=== PATIENT | male | born 1965 | race Caucasian/White ===

== ENCOUNTER 2016-12-12 14:10 | Emergency (ER) | payer MEDICAID ==
--- NOTE | 2016-12-12 14:46 | Emergency Department Record ---
History of Present Illness - General Chief Complaint: Back Pain/Injury Stated Complaint: LOWER BACK PAIN Time Seen by Provider: 12/12/16 14:35 Source: Patient Mode of Arrival: Ambulatory Limitations: No limitations - History of Present Illness Initial Comments: 51 yo male presents with left lower back pain for one week. No specific injury. No trauma. 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 He has had similar pain in the past. The pain is more on the left and radiates to the left buttocks. No weakness, no numbness, no changes in bowel or bladder function. No numbness with wiping. MD Complaint: Back pain -: Week(s) (1) Place: Work Radiation: Left leg (left buttocks) Severity: Moderate Quality: Aching, Sharp, Stabbing Consistency: Constant Improves With: Immobilization Worsens With: Movement, Walking Context: Bending Associated Symptoms: Denies other symptoms - Related Data Previous Rx's Medication Instructions Recorded Cyclobenzaprine HCl [Flexeril] 10 mg PO TID #20 tablet 12/12/16 Hydrocodone/Acetaminophen [[place] 1 each PO Q8H #10 tablet 12/12/16 5-325 Tablet] Methylprednisolone [Medrol Dose 0 mg PO UD #1 tab.ds.pk 12/12/16 Pack] Naproxen [Naprosyn] 500 mg PO BID #30 tablet 12/12/16 Allergies Allergy/AdvReac Type Severity Reaction Status Date / Time Penicillins Allergy Severe HIVES Verified 12/12/16 14:49 sulfamethoxazole Allergy Severe HIVES Verified 12/12/16 14:49 [From Bactrim] trimethoprim [From Bactrim] Allergy Severe HIVES Verified 12/12/16 14:49 Review of Systems Constitutional: Denies: Chills, Fever, Malaise, Weakness Eyes: Denies: Eye discharge, Eye pain, Photophobia, Vision change ENT: Denies: Congestion, Throat pain Respiratory: Denies: Cough, Dyspnea, Hemoptysis, Stridor, Wheezes Cardiovascular: Denies: Chest pain, Palpitations, Syncope Endocrine: Denies: Fatigue Gastrointestinal: Denies: Abdominal pain, Diarrhea, Nausea, Vomiting Genitourinary: Denies: Dysuria, Frequency, Hematuria, Testicular pain, Urgency Musculoskeletal: Reports: As per HPI, Back pain, Myalgia. Denies: Joint swelling, Neck pain Skin: Denies: Bruising, Change in color, Rash Neurological: Denies: Confusion, Headache, Numbness, Paresthesias, Seizure, Tingling, Tremors, Vertigo, Weakness Psychiatric: Denies: Anxiety Hematological/Lymphatic: Denies: Anemia, Blood Clots, Easy bleeding, Easy bruising, Swollen glands Physical Exam - General General Appearance: Alert, Oriented x3, Cooperative, No acute distress Limitations: No limitations - Head Head exam: Atraumatic, Normal inspection - Eye Eye exam: Normal appearance, PERRL. negative: Conjunctival injection, Scleral icterus - ENT ENT exam: Normal exam, Mucous membranes moist Ear exam: Normal external inspection Nasal Exam: Normal inspection Mouth exam: Normal external inspection Teeth exam: Normal inspection - Neck Neck exam: Normal inspection - Respiratory Respiratory exam: Normal lung sounds bilaterally. negative: Respiratory distress - Cardiovascular Cardiovascular Exam: Regular rate, Normal rhythm, Normal heart sounds - GI/Abdominal GI/Abdominal exam: Soft. negative: Tenderness - Rectal Rectal exam: Deferred - exam: Deferred - Extremities Extremities exam: Normal inspection, Full ROM, Normal capillary refill. negative: Joint swelling, Pedal edema, Tenderness Image of Full Body: 1 - mildly tender left lower lumbar, no rash, no deformity, normal inspection - Back Back exam: Reports: Normal inspection, Full ROM, Muscle spasm, Paraspinal tenderness, Tenderness. Denies: CVA tenderness (R), CVA tenderness (L), Vertebral tenderness - Neurological Neurological exam: Alert, Oriented X3, Reflexes normal (smmetric patellar +2, no weakness of foot flexion or extension). negative: Motor sensory deficit - Psychiatric Psychiatric exam: Normal affect, Normal mood - Skin Skin exam: Dry, Intact, Normal color, Warm Course - Reevaluation(s) Reevaluation #1: 12/12/16 14:51 Vitals reviewed No acute abnormalities The examination is consistent with musclulo-skeletal in etiology DC home on supportive treatment DC with phone list for PCP Disposition Disposition: Discharge Clinical Impression: Lumbar strain Qualifiers: Encounter type: initial encounter Qualified Code(s): S39.012A - Strain of muscle, fascia and tendon of lower back, initial encounter Disposition: Home, Self-Care Condition: (1) Good Instructions: Low Back Strain (ED) Additional Instructions: Call the numbers provided for a new family doctor You may need further tests (MRI) or treatment (physical therapy) Any salvage determiner pain control will best be handle by a family doctor Return if worse, weak, numb, uncontrolled pain or concern Prescriptions: Cyclobenzaprine HCl [Flexeril] 10 mg PO TID #20 tablet Hydrocodone/Acetaminophen [[place] 5-325 Tablet] 1 each PO Q8H #10 tablet Methylprednisolone [Medrol Dose Pack] 0 mg PO UD #1 tab.ds.pk Naproxen [Naprosyn] 500 mg PO BID #30 tablet Forms: Patient Portal Access Time of Disposition: 14:50 Quality - Quality Measures Quality Measures: N/A - Blood Pressure Screening Does Patient Have Any of the Following: No Systolic Measurement: ~ Screening for High Blood Pressure: < Pre-Hypertensive BP, F/U Documented > [ G8950] Pre-Hypertensive Follow-up Interventions: Referral to alternative/primary care provider.
== END 2016-12-12 15:14 | disposition home or self-care (01) ==
LOC: ER 14:10
DX: S39.012A Strain of muscle, fascia and tendon of lower back, initial encounter (principal); X50.9XXA Other and unspecified overexertion or strenuous movements or postures, initial encounter
CPT/HCPCS: 99282

== ENCOUNTER 2019-04-05 11:23 | Emergency (ER) | payer SELFPAY ==
--- NOTE | 2019-04-05 12:03 | Emergency Department Record ---
History of Present Illness - General Chief complaint: Pain Stated complaint: RIB PAIN Time Seen by Provider: 04/05/19 11:34 Source: Patient Mode of Arrival: Ambulatory Limitations: Physical limitation - History of Present Illness Initial comments: The patient is here due to L lateral rib pain since falling off a roof 10 days ago. He denies any SOB, DONNA, AP, or back pain. The patient also has been having L arm pain and numbness worse since he fell. He has had a hx of L arm numbness from his wrist to his shoulder off and on for almost a year. He does sometimes wake up at night and have to shake the L hand to get the numbness to go away. He believes he may have carpal tunnel. The patient did get nervous this AM and did have some palpitations but no CP, SOB, or DONNA. He also has no hx of YANCEY or CP with exertion. MD Complaint: Other Onset/Timin -: Days(s) History of Same: No Severity scale (1-10): 4 Quality: Aching Consistency: Constant Improves with: Nothing Worsens with: Nothing Associated Symptoms: Denies other symptoms - Related Data Previous Rx's Medication Instructions Recorded Naproxen [Naprosyn] 500 mg PO BID #14 tablet. 04/05/19 Allergies Allergy/AdvReac Type Severity Reaction Status Date / Time Penicillins Allergy Severe HIVES Verified 04/05/19 11:31 sulfamethoxazole Allergy Severe HIVES Verified 04/05/19 11:31 [From Bactrim] trimethoprim [From Bactrim] Allergy Severe HIVES Verified 04/05/19 11:31 Travel Screening - Travel/Exposure Within Last 30 Days Have you traveled within the last 30 days?: No Review of Systems Constitutional: Denies: Chills, Fever Eyes: Denies: Eye discharge ENT: Denies: Congestion Respiratory: Denies: Cough, Dyspnea Past Medical History - SOCIAL HISTORY Smoking Status: Current every day smoker Alcohol Use: None Drug Use: None - RESPIRATORY Hx Respiratory Disorders: No - CARDIOVASCULAR Hx Cardio Disorders: No - NEURO Hx Neuro Disorders: No - GI Hx GI Disorders: No - Hx Genitourinary Disorders: No - ENDOCRINE Hx Endocrine Disorders: No - MUSCULOSKELETAL Hx Musculoskeletal Disorders: Yes Hx Back Injury: Yes - PSYCH Hx Psych Problems: Yes Hx Anxiety: Yes - HEMATOLOGY/ONCOLOGY Hx Hematology/Oncology Disorders: No Family Medical History Any Significant Family History?: No Physical Exam - General General Appearance: Alert, Oriented x3, Cooperative, No acute distress - Head Head exam: Atraumatic, Normocephalic - Eye Eye exam: Normal appearance, PERRL - Neck Neck exam: Normal inspection, Full ROM. negative: Tenderness - Respiratory Respiratory exam: Normal lung sounds bilaterally, Chest wall tenderness (There is L lower rib tenderness but no bruising or abrasions.). negative: Respiratory distress - Cardiovascular Cardiovascular Exam: Regular rate, Normal rhythm, Normal heart sounds. negative: Diastolic murmur, Systolic murmur - GI/Abdominal GI/Abdominal exam: Soft, Normal bowel sounds. negative: Tenderness - Extremities Extremities exam: Normal inspection, Full ROM, Normal capillary refill. negative: Tenderness - Neurological Neurological exam: Alert, Normal gait, Oriented X3, Reflexes normal. negative: Abnormal gait, Altered, Motor sensory deficit (There are no motor or sensory deficits to the arms or legs.) - Psychiatric Psychiatric exam: negative: Anxious Course Vital Signs 04/05/19 11:26 Temperature 98.1 F Pulse Rate 103 H Respiratory 22 Rate Blood Pressure 121/88 Pulse Ox 96 - Reevaluation(s) Reevaluation #1: The patient is resting comfortably at this time. I did discuss the possible L 9th rib fracture with the patient and the need for F/U. He is to not lift anything heavy until better. He also is to see his PCP due to the multiple c hronic complaints he has. 04/05/19 13:15 Medical Decision Making - Data Complexity MDM Data: Labs Ordered and/or Reviewed, X-Ray Ordered and/or Reviewed, EKG Ordered and/or Reviewed - Lab Data Result diagrams: 04/05/19 12:00 04/05/19 12:00 - EKG Data -: EKG Interpreted by Ga EKG: No Acute Changes, Normal EKG - Radiology Data Radiology results: Report reviewed (L ribs: possible nondisplaced fx L 9th rib.) Disposition Disposition: Discharge Clinical Impression: Left rib fracture Qualifiers: Encounter type: initial encounter Rib fracture type: single rib Fracture type: closed Qualified Code(s): S22.32XA - Fracture of one rib, left side, initial encounter for closed fracture Disposition: Home, Self-Care Condition: (2) Stable Instructions: Rib Fracture (ED) Additional Instructions: Please rest when possible and take the Naprosyn for pain. Please see your family doctor for recheck later this week or next week and also discuss the chronic L arm issues. Return to the ER for any worsening symptoms or any CP, SOB, DONNA, or sweating. Prescriptions: Naproxen [Naprosyn] 500 mg PO BID #14 tablet.dr Forms: Patient Portal Access Time of Disposition: 13:18 Quality - Quality Measures Quality Measures: N/A - Blood Pressure Screening View Details: Yes Does Patient Have Any of the Following: No Blood Pressure Classification: Pre-Hypertensive BP Reading Systolic Measurement: 121 Diastolic Measurement: 88 Screening for High Blood Pressure: < Pre-Hypertensive BP, F/U Documented > [G8950] Pre-Hypertensive Follow-up Interventions: Referral to alternative/primary care provider.
[2019-04-05 12:06] LABS: ABSOLUTE NEUTROPHIL COUNT 5.58; BASO % 0.9 % (0-6); GRAN % 65.4 % (47-80); HEMATOCRIT 46.4 % (42.0-52.0); HEMOGLOBIN 15.8 gm/dl (14.0-18.0); LYMPH % 23.4 % (16-45); MEAN CELL VOLUME 87.9 fl (81-97); MEAN CORPUSCULAR HEMOGLOBIN 29.9 pg (27-33); MEAN CORPUSCULAR HGB CONC 34.1 g/dl (32-36); MEAN PLATELET VOLUME 9.1 fl (7.4-10.4); MONO % 7.3 % (0-9); PLATELET COUNT 320 K/uL (130-400); RED BLOOD COUNT 5.28 M/uL (4.40-5.70); RED CELL DISTRIBUTION WIDTH 13.4 % (11.5-14.5); WHITE BLOOD COUNT W/O DIFF 8.5 K/uL (4.2-12.2)
[2019-04-05 12:21] LABS: BLOOD UREA NITROGEN 10 mg/dL (6-20); EST GLOMERULAR FILTRATION RATE > 60 mL/min
[2019-04-05 12:22] LABS: TOTAL PROTEIN 6.7 g/dL (6.6-8.7)
[2019-04-05 12:24] LABS: GLUCOSE,RANDOM 102 mg/dL (74-109)
[2019-04-05 12:27] LABS: ALB/GLOB RATIO 1.7 (1.1-1.8); ALBUMIN 4.2 g/dL (4.0-5.0); ALKALINE PHOSPHATASE 61 U/L (40-129); ALT/SGPT 14 U/L (<41); AST/SGOT 13 U/L (10.0-50.0)
--- NOTE | 2019-04-05 13:08 | RADIOLOGY REPORT ---
EXAMINATION: Left Ribs with Frontal View Chest, Minimum Three Views EXAM DATE: 04/05/2019 12:23 PM TECHNIQUE: AP and oblique views of the left ribs with frontal view of the chest INDICATION: L rib pain COMPARISON: none ENCOUNTER: Initial FINDINGS: Chest: The heart, mediastinum and pulmonary vasculature are normal. No lung consolidation or pleu ral effusions are present. No pneumothorax. Left ribs: Subtle left lateral lower rib fracture contour deformity involving the ninth rib.. IMPRESSION: Left lateral ninth rib contour fracture deformity. Please correlate with point tenderness. Dictated by: Drew Chawla DO on 04/05/2019 1:02 PM. .
== END 2019-04-05 13:38 | disposition home or self-care (01) ==
LOC: ER 11:23
DX: S22.32XA Fracture of one rib, left side, initial encounter for closed fracture (principal); R20.0 Anesthesia of skin; W17.89XA Other fall from one level to another, initial encounter; F17.210 Nicotine dependence, cigarettes, uncomplicated
CPT/HCPCS: 80053; 84484; 85025; 93005; 93010; 99284